=== PATIENT | female | born 1980 | race Caucasian/White ===

== ENCOUNTER → 2018-08-13 11:08 | Outpatient (CLI) | payer OTHER, SELFPAY ==
[2018-08-13 12:39] LABS: Free T3, Triiodothyronine Free 2.83 pg/mL (2.77-5.27)
[2018-08-13 12:53] LABS: Thyroid Stimulating Hormone 0.42 uIU/mL (0.47-4.68)
== END ==
PROVIDERS: Visit Provider Family Medicine
DX: E03.9 Hypothyroidism, unspecified (principal)
CPT/HCPCS: 36415; 84439; 84443; 84481

== ENCOUNTER 2018-09-22 09:51 | Emergency (ER) | payer OTHER, SELFPAY ==
[2018-09-22 09:53] VITALS: BP 142/82; PULSE 82; RESP 18; TEMP 36.6; O2SAT 96; BMI 52.8
--- NOTE | 2018-09-22 10:14 | DI.RAD.S_ITS ---
PROCEDURE: XR CHEST 2V INDICATIONS: cough eval for PNA TECHNIQUE: 2 views of the chest were acquired. COMPARISON: Merged With [facility], , CHEST 2 VIEW, 04/10/2016, 10:11. FINDINGS: Surgical changes and devices: None. Lungs and pleura: Lungs are clear. No pleural effusions or pneumothorax. Mediastinum: Mediastinal contours are normal. Heart size is normal. Bones and chest wall: No suspicious bony abnormalities. Soft tissues appear unremarkable. IMPRESSION: No acute disease Dictated by: Tejinder Hutchins M.D. on 09/22/2018 at 10:31 Approved by: Tejinder Hutchins M.D. on 09/22/2018 at 10:32
--- NOTE | 2018-09-22 10:25 | ED.URI ---
HPI - URI/Sore Throat General Chief Complaint: Upper Respiratory Symptoms Stated Complaint: short of breath, cough, wheezing Time Seen by Provider: 09/22/18 10:08 Source: patient Mode of arrival: ambulatory Limitations: no limitations History of Present Illness HPI Narrative: 37-year-old female with a history of asthma. Has not been on an oral steroid in many years. She does have an albuterol inhaler at home with an AeroChamber which she only uses occasionally. She states over the past couple days she has had a cough. Is on day 3 of azithromycin for clinically diagnosing bronchitis. Is also on day 3 of oral steroids. She states that her cough seems to be getting worse. Her home nebulizer treatment has not been helping for her. She has never been hospitalized or intubated because of her asthma. No fevers. Related Data Home Medications Medication Instructions Recorded Confirmed omeprazole 20 mg PO QPM #0 cap 03/06/16 09/22/18 VITAMIN D (Vitamin D3) 1 tab PO DAILY #0 10/16/17 09/22/18 multivitamin [Multiple Vitamins] 1 tab PO DAILY #0 10/16/17 09/22/18 metformin 500 mg tablet 1,000 mg PO BID tab 02/11/18 09/22/18 naltrexone 8 mg-bupropion 90 mg 1 tab PO BID tab 02/11/18 09/22/18 tablet,extended release L norgest/e.estradiol-e.estrad 1 tab PO QPM 09/22/18 09/22/18 [Seasonique] cyclobenzaprine 10 mg PO PRN PRN 09/22/18 09/22/18 levothyroxine 75 mcg PO DAILY 09/22/18 09/22/18 montelukast [Singulair] 10 mg PO QPM 09/22/18 09/22/18 topiramate 100 mg PO BEDTIME 09/22/18 09/22/18 trazodone 25 mg PO BEDTIME 09/22/18 09/22/18 Previous Rx's Medication Instructions Recorded albuterol sulfate HFA 90 1 inh INHALATION Q4-6H PRN #18 gram 09/20/18 mcg/actuation aerosol inhaler azithromycin 250 mg tablet See Rx Instructions PO .COMPLEX #6 09/20/18 tab prednisone 20 mg tablet See Rx Instructions PO .COMPLEX 6 02/18/19 Days #7 tab codeine-guaifenesin [Guaifenesin 10 ml PO Q4-6H PRN #118 ml 09/22/18 AC] prednisone 20 mg PO DAILY #33 tab 09/22/18 Allergies Allergy/AdvReac Type Severity Reaction Status Date / Time Sulfa (Sulfonamide Allergy Severe Anaphylaxis Verified 09/22/18 09:59 Antibiotics) [SULFA (SULFONAMIDE ANTIBIOTICS)] Review of Systems Constitutional Denies fever(s) Cardiovascular Denies chest pain, Reports dyspnea and Reports dyspnea on exertion Respiratory Reports cough, Reports dyspnea, Reports dyspnea on exertion and Reports wheezing Gastrointestinal Gastrointestinal: Denies abdominal pain, Denies nausea and Denies vomiting Genitourinary Denies dysuria Musculoskeletal Denies myalgias and Denies arthralgias Integumentary/Breasts Denies lesions and Denies rash Neurologic Denies behavioral changes Psychiatric Denies behavioral changes Hematologic/Lymphatic Denies easy bleeding and Denies easy bruising Allergic/Immunologic Reports wheezing PFSH Medical History Obstructive sleep apnea of adult (Chronic) Insomnia, unspecified (Chronic) Snoring (Inactive) Morbid obesity with body mass index (BMI) greater than or equal to 50 (Chronic) Obstructive sleep apnea of adult (Acute) ADD (attention deficit disorder) (Chronic) Allergic rhinitis (Chronic) Anxiety (Chronic) Asthma (Chronic) Chronic back pain (Chronic) Depression (Chronic) GERD (gastroesophageal reflux disease) (Chronic) Hemifacial spasm (Chronic) Hypothyroidism (Chronic ~10/2017) Migraines (Chronic) Basal cell carcinoma (Resolved 01/2012) Hx of wisdom tooth extraction (Resolved 2000) Surgical History Hx of basal cell carcinoma excision (Resolved 01/2012) Hx of surgical procedure (Resolved 01/2015) Family History Father Age: 66 Dyslipidemia Hypertension Mother Age: 65 Diabetes mellitus Hypertension Migraines Depression GERD (gastroesophageal reflux disease) Grandfather Hypertension DM (diabetes mellitus screen) Grandmother Lymphoma Grandfather Leukemia Grandmother Diabetes mellitus Hypertension Sister Migraines Sister No problems noted. Social History Smoking Status: Never smoker alcohol intake: current (Rare) Social History Smoking Status: Never smoker alcohol intake: current (Rare) Exam Initial Vital Signs Initial Vital Signs: Vital Signs Temperature 97.9 F 09/22/18 09:53 Pulse Rate 82 09/22/18 09:53 Respiratory Rate 18 09/22/18 09:53 Blood Pressure 142/82 H 09/22/18 09:53 Pulse Oximetry 96 09/22/18 09:53 Const General: cooperative, comfortable, well developed, well groomed and No acute distress Orientation: alert and awake HENMT Head: normal to inspection and normocephalic Resp Effort & Inspection: cough, not labored, no retractions and tachypneic Auscultation: wheezes Cardio Rate: regular rate Rhythm: regular rhythm Skin Rashes: no rashes Neuro General: alert and awake Extrem General: normal to inspection and capillary refill normal Psych Appearance: grossly normal and well kempt Course Orders Ordered: ED Orders 09/22/18 10:00 FLU A and B [Influenza A and B by PCR Rapid] Stat 09/22/18 10:14 XR chest 2V Stat Discontinued Medications Albuterol/Ipratropium (Duoneb) 3 ml INH NOW ONE Stop: 09/22/18 10:15 Last Admin: 09/22/18 10:29 Dose: 3 ml Albuterol/Ipratropium (Duoneb) 3 ml INH NOW ONE Stop: 09/22/18 11:09 Last Admin: 09/22/18 11:27 Dose: 3 ml Vital Signs - 8 hr 09/22/18 09:53 09/22/18 10:30 09/22/18 11:10 Temperature 97.9 F 97.9 F Pulse Rate 82 78 Respiratory Rate 18 18 18 Blood Pressure 142/82 H Blood Pressure [Left Arm] 130/74 Pulse Oximetry 96 96 98 09/22/18 11:27 Temperature Pulse Rate 78 Respiratory Rate 16 Blood Pressure Blood Pressure [Left Arm] Pulse Oximetry 99 MDM - URI/Sore Throat Lab Data Attestation: I reviewed the patient's lab results. Lab Results 09/22/18 Range/Units 10:00 Influenza A & B (PCR) Negative (Negative) Imaging Data Chest x-ray: Radiologist's impression: [address] [address] XRay Report Signed Patient: Yoko Cummings LMR#: [id number] : 1980Acct:[id number] Age/Sex: 37 / FDate of Service: 09/22/18 Loc: ED Accession Number: [id number] Procedure: XR chest 2V Ordering Provider: Calvin Nick D.O. PROCEDURE: XR CHEST 2V INDICATIONS: cough eval for PNA TECHNIQUE: 2 views of the chest were acquired. COMPARISON: [facility], CHEST 2 VIEW, 04/10/2016, 10:11. FINDINGS: Surgical changes and devices: None. Lungs and pleura: Lungs are clear. No pleural effusions or pneumothorax. Mediastinum: Mediastinal contours are normal. Heart size is normal. Bones and chest wall: No suspicious bony abnormalities. Soft tissues appear unremarkable. IMPRESSION: No acute disease Dictated by: Tejinder Hutchins M.D. on 09/22/2018 at 10:31 Approved by: Tejinder Hutchins M.D. on 09/22/2018 at 10:32 MDM Narrative Medical decision making narrative: Patient states she feels better after the 2 DuoNeb treatments here in the emergency department. She is currently on antibiotics. Her chest x-ray shows no focal pneumonia. She is not hypoxic. Will send home with cough medication. She has albuterol and a spacer at home and does not need refills of this. She is currently on steroids however feel that we need to increase these and make it a longer course of treatment. The patient agrees. She states that this is which she has been on in the past. She was given return precautions. She states she feels like she can go home. Discharge Plan Departure Patient Disposition: Home Clinical Impression: Asthma exacerbation Qualifiers: Asthma severity: unspecified severity Asthma persistence: unspecified Qualified Code(s): J45.901 - Unspecified asthma with (acute) exacerbation Instructions: Asthma -- Adult Activity Restrictions/Additional Instructions: I would continue the antibiotics until completed. Start the 60 mg of prednisone today. Return to the emergency department for any new or worsening symptoms Prescriptions: New prednisone 20 mg tablet 20 mg PO DAILY Qty: 33 RF: 0 codeine-guaifenesin [Guaifenesin AC] 10-100 mg/5 mL liquid 10 ml PO Q4-6H PRN (Reason: cough) Qty: 118 RF: 0 No Action prednisone 20 mg tablet See Rx Instructions PO .COMPLEX 6 Days Qty: 7 RF: 0 azithromycin 250 mg tablet See Rx Instructions PO .COMPLEX Qty: 6 RF: 0 albuterol sulfate 90 mcg/actuation HFA aerosol inhaler 1 inh INHALATION Q4-6H PRN (Reason: shortness of breath) Qty: 18 RF: 0 omeprazole 20 MG capsule,delayed release(DR/EC) 20 mg PO QPM Qty: 0 RF: 0 multivitamin [Multiple Vitamins] 1 EACH tablet 1 tab PO DAILY Qty: 0 RF: 0 VITAMIN D (Vitamin D3) 1 tab PO DAILY Qty: 0 RF: 0 trazodone 50 mg tablet 25 mg PO BEDTIME RF: 0 topiramate 25 mg tablet 100 mg PO BEDTIME RF: 0 levothyroxine 75 mcg tablet 75 mcg PO DAILY RF: 0 montelukast [Singulair] 10 mg tablet 10 mg PO QPM RF: 0 L norgest/e.estradiol-e.estrad [Seasonique] 0.15 mg-30 mcg (84)/10 mcg (7) tablets,dose pack,3 month 1 tab PO QPM RF: 0 cyclobenzaprine 10 mg tablet 10 mg PO PRN PRN (Reason: Spasms) RF: 0 metformin [Glucophage] 500 mg tablet 1,000 mg PO BID RF: 0 naltrexone-bupropion [Contrave] 8-90 mg tablet extended release 1 tab PO BID RF: 0
[2018-09-22] MEDS: ALBUTEROL/IPRATROPIUM 3 ML AMPUL INH ×2 (10:29→11:27)
[2018-09-22 10:30] VITALS: RESP 18; O2SAT 96
[2018-09-22 10:33] LABS: Influenza A and B by PCR Rapid Negative (Negative)
[2018-09-22 11:10] VITALS: BP 130/74; PULSE 78; RESP 18; TEMP 36.6; O2SAT 98
[2018-09-22 11:27] VITALS: PULSE 78; RESP 16; O2SAT 99
[2018-09-22 12:31] VITALS: BP 135/76; PULSE 82; RESP 18; TEMP 36.7; O2SAT 99
== END 2018-09-22 12:30 | disposition home or self-care (01) ==
PROVIDERS: Emergency Provider Emergency Medicine
DX: J45.901 Unspecified asthma with (acute) exacerbation (principal)
CPT/HCPCS: 71046; 87400; 94640; 99282; 99283

== ENCOUNTER → 2018-10-18 10:39 | Outpatient (CLI) | payer OTHER, SELFPAY ==
--- NOTE | 2018-10-18 10:41 | DI.US.S_ITS ---
PROCEDURE: US THYROID INDICATIONS: Thyromegaly TECHNIQUE: Real-time scanning was performed of the thyroid gland, with image documentation. COMPARISON: None. FINDINGS: Right: Thyroid lobe measures 3.8 x 1.5 x 1.1 cm, and is homogeneous in echotexture. No thyroid nodules are identified. Left: Thyroid lobe measures 4.0 x 1.5 x 1.2 cm, and is homogenous in echotexture. No thyroid nodules are identified. Isthmus: 0.3 cm thick. IMPRESSION: No thyroid nodules are identified. Unremarkable ultrasound appearance of the thyroid gland. Dictated by: Cristi Vo [facility] Interpreted: Beto Barbosa MD on 10/18/2018 at 12:18 Approved by: Beto Barbosa M.D. on 10/18/2018 at 17:28
== END ==
PROVIDERS: PCP Family Medicine; Visit Provider Family Medicine
DX: E01.0 Iodine-deficiency related diffuse (endemic) goiter (principal)
CPT/HCPCS: 76536

== ENCOUNTER → 2019-10-05 08:13 | Outpatient (CLI) | payer OTHER, SELFPAY ==
[2019-10-05 09:06] LABS: Influenza A - CEPHEID Flu A NEGATIVE (NEGATIVE); Influenza B - CEPHEID Flu B NEGATIVE (NEGATIVE)
== END ==
PROVIDERS: PCP Family Medicine; Visit Provider Physician Assistant
DX: R68.89 Other general symptoms and signs (principal); J02.9 Acute pharyngitis, unspecified
CPT/HCPCS: 87070; 87502

== ENCOUNTER → 2019-11-21 09:35 | Outpatient (CLI) | payer OTHER, SELFPAY ==
[2019-11-21 10:02] LABS: Add Manual Diff / Slide Review NO; Basophils Absolute Auto 100 /uL (0-100); Basophils Percent Auto 1.1 % (0-2); Eosinophils Absolute Auto 200 /uL (0-450); Eosinophils Percent Auto 1.4 % (2-4); Hematocrit 41.6 % (36-46); Hemoglobin 13.8 g/dL (12.0-16.0); Lymphocytes Absolute Auto 3900 /uL (1100-4500); Mean Corpuscular HGB Conc 33.2 % (30-36); Mean Corpuscular Hemoglobin 28.2 PG (26-34); Mean Corpuscular Volume 84.9 fL (80-100); Monocytes Absolute Auto 700 /uL (0-900); Monocytes Percent Auto 5.1 % (3-14); Neutrophils Absolute Auto 8400 /uL (1500-7000); Neutrophils Percent Auto 63.4 % (50-75); Platelet Count 356 X10^3/uL (150-400); Red Blood Cell Count 4.89 X10^6/uL (4.0-5.2); Red Cell Distribution Width 14.7 % (11.6-14.8); White Blood Cell Count 13.3 X10^3/uL (4.5-11.0)
[2019-11-21 10:49] LABS: Alanine Aminotransferase 15 IU/L (<35); Albumin 4.4 g/dL (3.5-5.0); Albumin Globulin Ratio 1.3 (1.0-2.8); Alkaline Phosphatase 58 U/L (38-126); Aspartate Aminotransferase 21 IU/L (14-36); BUN Creatinine Ratio 19.5 (6-22); Bilirubin Total 0.4 mg/dL (0.2-1.3); Blood Urea Nitrogen 15 mg/dL (7-17); Calcium 9.6 mg/dL (8.4-10.2); Carbon Dioxide 24 mmol/L (22-32); Chloride 107 mmol/L (98-107); Cholesterol 209 mg/dL (140-199); Estimated Glomerular Filt Rate > 60.0 mL/min (>60); Globulin 3.4 g/dL (1.7-4.1); Glucose 106 mg/dL (70-100); HDL Cholesterol 50 mg/dL (40-60); HEMOLYSIS < 15 (0-50); LDL Cholesterol Calculated 115 mg/dL (<100); Potassium 4.3 mmol/L (3.4-5.1); Sodium 141 mmol/L (137-145); Total Protein 7.8 g/dL (6.3-8.2); Triglycerides 219 mg/dL (35-150)
[2019-11-21 11:46] LABS: Free T3, Triiodothyronine Free 3.32 pg/mL (2.77-5.27); Free T4, Direct Thyroxine 1.19 ng/dL (0.78-2.19)
[2019-11-21 12:00] LABS: Thyroid Stimulating Hormone 1.76 uIU/mL (0.47-4.68)
== END ==
PROVIDERS: PCP Nurse Practitioner; Referring Provider Nurse Practitioner; Visit Provider Nurse Practitioner
DX: E03.9 Hypothyroidism, unspecified (principal); E66.01 Morbid (severe) obesity due to excess calories; F51.01 Primary insomnia
CPT/HCPCS: 36415; 80053; 80061; 84439; 84443; 84481; 85025

== ENCOUNTER → 2020-05-22 09:12 | Outpatient (CLI) | payer OTHER, SELFPAY ==
[2020-05-22 10:52] LABS: Add Manual Diff / Slide Review NO; Basophils Absolute Auto 100 /uL (0-100); Basophils Percent Auto 0.4 % (0-2); Eosinophils Absolute Auto 300 /uL (0-450); Hematocrit 39.8 % (36-46); Hemoglobin 13.3 g/dL (12.0-16.0); Lymphocytes Absolute Auto 4900 /uL (1100-4500); Lymphocytes Percent Auto 38.6 % (25-40); Mean Corpuscular HGB Conc 33.4 % (30-36); Mean Corpuscular Hemoglobin 28.3 PG (26-34); Monocytes Absolute Auto 600 /uL (0-900); Monocytes Percent Auto 5.1 % (3-14); Neutrophils Absolute Auto 6800 /uL (1500-7000); Neutrophils Percent Auto 53.9 % (50-75); Platelet Count 377 X10^3/uL (150-400); Red Blood Cell Count 4.68 X10^6/uL (4.0-5.2); Red Cell Distribution Width 16.1 % (11.6-14.8); White Blood Cell Count 12.6 X10^3/uL (4.5-11.0)
[2020-05-22 11:17] LABS: Alanine Aminotransferase 11 IU/L (<35); Albumin 4.2 g/dL (3.5-5.0); Albumin Globulin Ratio 1.4 (1.0-2.8); Alkaline Phosphatase 68 U/L (38-126); Aspartate Aminotransferase 14 IU/L (14-36); BUN Creatinine Ratio 17.6 (6-22); Bilirubin Total 0.5 mg/dL (0.2-1.3); Blood Urea Nitrogen 13 mg/dL (7-17); Calcium 9.4 mg/dL (8.4-10.2); Carbon Dioxide 22 mmol/L (22-32); Chloride 108 mmol/L (98-107); Cholesterol 215 mg/dL (140-199); Estimated Glomerular Filt Rate > 60.0 mL/min (>60); Globulin 3.1 g/dL (1.7-4.1); Glucose 89 mg/dL (70-100); HDL Cholesterol 63 mg/dL (40-60); HEMOLYSIS < 15 (0-50); LDL Cholesterol Calculated 89 mg/dL (<100); Potassium 4.4 mmol/L (3.4-5.1); Sodium 138 mmol/L (137-145); Total Protein 7.3 g/dL (6.3-8.2); Triglycerides 316 mg/dL (35-150)
[2020-05-22 11:40] LABS: Thyroid Stimulating Hormone 2.03 uIU/mL (0.47-4.68)
== END ==
PROVIDERS: PCP Nurse Practitioner; Referring Provider Nurse Practitioner; Visit Provider Nurse Practitioner
DX: Z00.00 Encounter for general adult medical examination without abnormal findings (principal); E03.9 Hypothyroidism, unspecified; E66.01 Morbid (severe) obesity due to excess calories; J45.909 Unspecified asthma, uncomplicated; Z79.899 Other long term (current) drug therapy
CPT/HCPCS: 36415; 80053; 80061; 84443; 85025

== ENCOUNTER → 2020-06-13 14:40 | Outpatient (CLI) | payer OTHER, SELFPAY ==
--- NOTE | 2020-06-13 14:41 | DI.ECHO.S_ITS ---
[facility] +---------+ : : [address] : : : : [id number] : : : : Phone: [phone]+ Echocardiogram Report + + :Name: JOSIE ROD Study Date: 06/13/2020 Height: 64 in : :[facility] Weight: 375 lb : : Gender: Female BSA: 2.6 m2 : :: 1980 Age: 39 yrs BP: 152/94 mmHg: :Reason For Study: DYSPNEA ON EXERTION : :Ordering Physician: PAMELLA, : :LEX Performed By: Tanya Neil : :Referring: LEX CAN : + + Interpretation Summary There is mild concentric left ventricular hypertrophy. Left ventricular systolic function appears normal without focal wall motion abnormalities. The ejection fraction is estimated to be 65-70%. Diastolic parameters suggest probable normal left ventricular diastolic function and normal filling pressures. The right ventricle is normal in size and function. Pulmonary artery pressures cannot be estimated because of the lack of a measurable TR jet velocity. Both atria are normal in size. There is no significant valvular heart disease. The ascending aorta is mildly enlarged. Procedure: A two-dimensional transthoracic echocardiogram with color flow and Doppler was performed. The study quality was technically adequate. There is no prior echocardiogram noted for this patient. The patient was in sinus rhythm with heart rates between 76-91 bpm during the exam. Left Ventricle: The left ventricle is normal in size. There is mild concentric left ventricular hypertrophy. Left ventricular systolic function appears normal without focal wall motion abnormalities. The ejection fraction is estimated to be 65-70%. Diastolic parameters suggest probable normal left ventricular diastolic function and normal filling pressures. Right Ventricle: The right ventricle is normal in size and function. Atria: Both atria are normal in size. There is no Doppler evidence for an interatrial shunt. Mitral Valve: The mitral valve is normal in structure and function. There is no mitral regurgitation noted. Aortic Valve: The aortic valve is trileaflet. The aortic valve opens well. There is no aortic valve stenosis. No aortic regurgitation is present. Tricuspid Valve: The tricuspid valve is not well visualized, but is grossly normal. Pulmonary artery pressures cannot be estimated because of the lack of a measurable TR jet velocity. Pulmonic Valve: The pulmonic valve is not well seen, but is grossly normal. There is no pulmonic valvular regurgitation. There is no significant valvular heart disease. Great Vessels: The aortic root is normal size. The ascending aorta is mildly enlarged. The inferior vena cava was not visualized. Pericardium/ Pleura There is no pericardial effusion. There is no pleural effusion. MMode/2D Measurements & Calculations LVIDd: 5.0 cm LVOT diam: 2.3 cm LVIDs: 3.4 cm Ao root diam: 3.2 cm FS: 32.5 % asc Aorta Diam: 3.6 cm IVSd: 1.1 cm Ao Arch Diam (Prox Trans): 3.2 cm LVPWd: 1.1 cm LV jeong. diameter/BSA (cm/m^2): 2.0 LV sys. diameter/BSA (cm/m^2): 1.3 LA A2 area: 20.6 cm2 RA long axis: 4.7 cm LA A4 area: 15.6 cm2 RA area: 13.7 cm2 LA length (vol): 4.6 cm RA vol: 34.0 ml LA vol: 59.1 ml RA : 13.3 ml/m2 LA vol index: 23.1 ml/m2 RVD1 (basal): 3.8 cm TAPSE: 2.6 cm Doppler Measurements & Calculations Ao V2 max: 145.8 cm/sec LVOT Max Abdoulaye: 100.2 cm/sec Ao V2 mean: 103.6 cm/sec LV V1 max P.0 mmHg Ao max P.5 mmHg LV V1 VTI: 18.3 cm Ao mean P.8 mmHg HUBER(I,D): 2.8 cm2 Ao V2 VTI: 27.2 cm HUBER(V,D): 2.8 cm2 sev ratio: 0.67 HUBER indexed to BSA (cm^2/m^2): 1.1 MV E max abdoulaye: 97.0 cm/sec PA V2 max: 107.6 cm/sec MV A max abdoulaye: 60.5 cm/sec PA V2 mean: 73.7 cm/sec MV E/A: 1.6 PA mean P.5 mmHg Med Peak E' Abdoulaye: 9.3 cm/sec PA pr(Accel): 32.8 mmHg E/E' med: 10.4 Lat Peak E' Abdoulaye: 11.5 cm/sec E/E' lat: 8.4 E/e' average: 9.4 MV dec time: 0.18 sec SV(LVOT): 75.5 ml Reading Physician:04:46 PM
== END ==
PROVIDERS: PCP Nurse Practitioner; Referring Provider Nurse Practitioner; Visit Provider Nurse Practitioner
DX: I77.89 Other specified disorders of arteries and arterioles (principal); R05 Cough; R06.02 Shortness of breath
CPT/HCPCS: 93306

== ENCOUNTER → 2020-07-09 17:34 | Outpatient (CLI) | payer OTHER, SELFPAY ==
--- NOTE | 2020-07-09 17:35 | DI.MG.S_ITS ---
BILATERAL DIGITAL SCREENING MAMMOGRAM 3D/2D WITH CAD: 07/09/2020 CLINICAL: Routine screening. Baseline exam. No prior exams were available for comparison. There are scattered fibroglandular elements in both breasts. Current study was also evaluated with a Computer Aided Detection (CAD) system. No significant masses, calcifications, or other findings are seen in either breast. IMPRESSION: NEGATIVE There is no mammographic evidence of malignancy. A 1 year screening mammogram is recommended. This exam was interpreted at Station ID: [id number]. NOTE: For mammograms, a report in lay terms will be sent to the patient. Approximately 15% of breast malignancies will not be visualized mammographically. In the management of a palpable breast mass, a negative mammogram must not discourage biopsy of a clinically suspicious lesion. Electronically Signed By: Evan aj/torres:07/10/2020 08:57:15 letter sent: Normal Exam ACR BI-RADS Category 1: Negative [id number]
== END ==
PROVIDERS: PCP Nurse Practitioner; Referring Provider Nurse Practitioner; Visit Provider Nurse Practitioner
DX: Z12.31 Encounter for screening mammogram for malignant neoplasm of breast (principal)
CPT/HCPCS: 77063; 77067